=== PATIENT | male | born 1935 | race Caucasian/White ===

== ENCOUNTER → 2019-05-08 | Day surgery (SDC) | payer MEDICARE, BC ==
[~2019-05-08] MED LIST: ACET325T9 PO; APIX2.5T PO; ASPI-630 PO; BENZ100C PO; CETI10TA16 PO; CRESTOR10 MG PO; DEXT237L PO; DOXY100T PO; FURO-68 PO; FURO40TA4 PO; GABA-585 PO; GLUC1CAP48 PO; GUAI-108 PO; HYDR-3164 PO; HYDR5SUS PO; IV RINGERS,LACTATED 1000ML 1,000 ML IV ONE; LISI-338 PO; METO-239 PO; ONDA4TAB10 SL; PANT20TA2 PO; Polyethylene Glycol 3350 PO; Sennosides/Docusate Sodium PO; TAMS0.4C97 PO
[2019-05-08 09:00] VITALS: BP 179/79
== END ==
LOC: SURG 07:46
PROVIDERS: ATTEND Internal Medicine Gastroenterology
DX: R11.2 Nausea with vomiting, unspecified (principal); K29.50 Unspecified chronic gastritis without bleeding; E78.5 Hyperlipidemia, unspecified; I48.91 Unspecified atrial fibrillation; I11.9 Hypertensive heart disease without heart failure; E78.00 Pure hypercholesterolemia, unspecified; F41.9 Anxiety disorder, unspecified; Z85.828 Personal history of other malignant neoplasm of skin; Z98.890 Other specified postprocedural states; Z89.611 Acquired absence of right leg above knee
CPT/HCPCS: 43235